=== PATIENT | female | born 1950 | race Caucasian/White ===

== ENCOUNTER 2017-02-22 10:04 | Outpatient (CLI) | payer MEDICARE, BC ==
[~2017-02-22] VITALS: Ht 154.9 cm; Wt 103.0 kg
[~2017-02-22 10:04] MED LIST: ACETAMINOPHEN W1 TA6 PO; ACTOS 15MG TAB15 MG PO; ASPIR-LOW81 MG PO; CARVEDILOL; CLINDAMYCIN HC150 MG PO; COZAAR 50MG50 MG/TAB PO; GLUCOPHAGE1000 MG PO; LEXAPRO 10MG10 MG PO; LIPITOR 80MG80 MG PO; NEXIUM 40MG40 MG PO; PERCOCET 5/321 UDTAB PO; SYNTHROID0.075 MG/T PO; XANAX 1MG1 MG PO
[2017-02-22 10:30] VITALS: BP 122/65; PULSE 74; TEMP 98.4
[2017-02-22] MEDS ORDERED: ASPI325T6 PO (10:41)
[2017-02-22] MEDS ORDERED: CRANBERRY500 M3 PO (10:44)
[2017-02-22] MEDS ORDERED: VITAMIN D32000 I1 PO (10:44)
[2017-02-22] MEDS ORDERED: OMEGA-3 1000 MG1 CAP PO (17:15)
[2017-02-22] MEDS ORDERED: LASIX 20MG TABL20 MG PO (17:17)
[2017-02-22] MEDS ORDERED: GLUCOTROL XL2.5 MG PO (17:18)
[2017-02-22] MEDS ORDERED: MULTI VITAMINS1 TAB PO (17:20)
[2017-02-22] MEDS ORDERED: NAPROSYN500 MG PO (17:21)
[2017-02-22] MEDS ORDERED: PROBIOTIC FORMU1 CAP PO (17:22)
[2017-02-22] MEDS ORDERED: VALTREX 50500 MG/TAB PO (17:24)
[2017-02-22] MEDS ORDERED: VIIBRYD40 MG PO (17:24)
[2017-02-22] MEDS ORDERED: B-121000 MCG PO (17:25)
== END 2017-02-22 13:00 | disposition home or self-care (01) ==
LOC: EUO 10:04
DX: R79.0 Abnormal level of blood mineral (principal)
CPT/HCPCS: J3475

== ENCOUNTER 2018-04-21 10:12 | Day surgery (SDC) | payer MEDICARE, BC ==
[2018-04-21] VITALS (12 sets, daily range): BP systolic 114–169; BP diastolic 51–90; PULSE 69–83; TEMP 98
[~2018-04-21] VITALS: Ht 155 cm; Wt 103.3 kg
[~2018-04-21 10:12] MED LIST changes: +ASPI325T6 PO; +B-121000 MCG PO; +CRANBERRY500 M3 PO; +GLUCOTROL XL2.5 MG PO; +LASIX 20MG TABL20 MG PO; +MULTI VITAMINS1 TAB PO; +NAPROSYN500 MG PO; +OMEGA-3 1000 MG1 CAP PO; +PROBIOTIC FORMU1 CAP PO; +VALTREX 50500 MG/TAB PO; +VIIBRYD40 MG PO; +VITAMIN D32000 I1 PO
[2018-04-21 10:39] LABS: HEMATOCRIT 35.2 % (37.0-47.0); HEMOGLOBIN 11.3 g/dl (12.5-16.0); MEAN CELL VOLUME 83 fl (80.0-100.0); MEAN CORPUSCULAR HEMOGLOBIN 27 pg (27.0-31.0); MEAN CORPUSCULAR HGB CONC 32 g/dl (33.0-37.0); MEAN PLATELET VOLUME 9.9 fl (7.4-10.4); PLATELET COUNT 306 K/mm3 (130-400); RED BLOOD COUNT 4.23 M/mm3 (4.10-5.30); REDCELL DISTRIBUTION WIDTH-CV 15.2 % (11.5-14.5)
[2018-04-21 10:49] LABS: INR 1.1 (0.8-3.0); PROTHROMBIN TIME 12.1 SECONDS (9.7-12.8)
[2018-04-21 10:50] LABS: CALCIUM 9.6 mg/dL (8.4-10.2); CREATININE, serum 0.84 mg/dL (0.52-1.25); POTASSIUM 4.1 mmol/L (3.4-5.0)
[2018-04-21] MEDS ORDERED: ZOLOFT 50MG50 MG PO (11:12)
[2018-04-21] MEDS ORDERED: NYAMYC100000 U/G TP (11:13)
[2018-04-21] MEDS ORDERED: COREG12.5 MG PO (11:17)
[2018-04-21] MEDS ORDERED: NORCO 325 MG-7.1 TAB PO (11:19)
[2018-04-21] MEDS ORDERED: IMODIUM 2MG CAPS2 MG PO (11:20)
[2018-04-21] MEDS ORDERED: [UNRECOGNIZED DRUG - OTHER] TP (11:24)
[2018-04-21] MEDS ORDERED: MAGNESIUM CITR100 MG PO (11:24)
[2018-04-21] MEDS ORDERED: HAIRSKINNAILS PO (11:25)
[2018-04-21] MEDS ORDERED: BYSTOLIC10 MG PO (11:59)
== END 2018-04-21 16:37 | disposition home or self-care (01) ==
LOC: COL.CAR 10:12
PROVIDERS: Internal Medicine Cardiovascular Disease
DX: I25.119 Atherosclerotic heart disease of native coronary artery with unspecified angina pectoris (principal); R94.39 Abnormal result of other cardiovascular function study; F41.9 Anxiety disorder, unspecified; M19.90 Unspecified osteoarthritis, unspecified site; E11.9 Type 2 diabetes mellitus without complications; E78.5 Hyperlipidemia, unspecified; I10 Essential (primary) hypertension; E03.9 Hypothyroidism, unspecified; Z79.82 Long term (current) use of aspirin; Z79.84 Long term (current) use of oral hypoglycemic drugs; Z86.73 Personal history of transient ischemic attack (TIA), and cerebral infarction without residual deficits; Z82.49 Family history of ischemic heart disease and other diseases of the circulatory system; Z82.5 Family history of asthma and other chronic lower respiratory diseases; Z82.61 Family history of arthritis; Z82.3 Family history of stroke
CPT/HCPCS: C1769; J1644; J2250; J3010; Q9967

== ENCOUNTER → 2018-09-29 | Outpatient (CLI) | payer MEDICARE, BC ==
[~2018-09-29] MED LIST changes: +BYSTOLIC10 MG PO; +COREG12.5 MG PO; +HAIRSKINNAILS PO; +IMODIUM 2MG CAPS2 MG PO; +MAGNESIUM CITR100 MG PO; +NORCO 325 MG-7.1 TAB PO; +NYAMYC100000 U/G TP; +ZOLOFT 50MG50 MG PO; +[UNRECOGNIZED DRUG - OTHER] TP
== END ==
LOC: COL.RAD 11:27
DX: M47.22 Other spondylosis with radiculopathy, cervical region (principal); M43.12 Spondylolisthesis, cervical region; M48.02 Spinal stenosis, cervical region; M47.26 Other spondylosis with radiculopathy, lumbar region; M51.16 Intervertebral disc disorders with radiculopathy, lumbar region; M48.061 Spinal stenosis, lumbar region without neurogenic claudication

== ENCOUNTER → 2019-02-04 | Outpatient (CLI) | payer MEDICARE, BC ==
[2019-02-04 11:58] LABS: ARTERIAL BLD GAS O2 SATURATION 97.2 % (92-100); ARTERIAL BLD GAS TCO2 CT 23.7; ARTERIAL BLOOD GAS HCO3 22.7 meq/L (22-26); ARTERIAL BLOOD GAS PCO2 31.1 mmHg (35-45); ARTERIAL BLOOD GAS PO2 99.6 mmHg (80-100); ARTERIAL BLOOD GAS pH 7.48 (7.35-7.45)
== END ==
LOC: COL.PUL 11:31
PROVIDERS: Internal Medicine Pulmonary Disease
DX: R06.02 Shortness of breath (principal); Z77.22 Contact with and (suspected) exposure to environmental tobacco smoke (acute) (chronic)

== ENCOUNTER → 2020-08-30 | Outpatient (CLI) | payer MEDICARE, BC ==
[~2020-08-30] MED LIST changes: +ALDACTONE 25MG25 M1 PO; -ASPI325T6 PO; +ASPIRIN E.C. 8181 MG PO; +COZAAR 25MG25 MG/TAB PO; -COZAAR 50MG50 MG/TAB PO; +NARCAN4 MG NS; +NEURONTIN300 MG/CAP PO; +NORCO 325 MG-101 TAB PO; -NORCO 325 MG-7.1 TAB PO; -SYNTHROID0.075 MG/T PO; +SYNTHROID0.1 MG/TAB PO; +VOLTAREN GEL 1%1 TU TP; +ZOLOFT 100MG100 MG PO; -ZOLOFT 50MG50 MG PO
== END ==
LOC: COL.RAD 11:37
DX: N18.32 Chronic kidney disease, stage 3b (principal)
CPT/HCPCS: A9540; A9567